=== PATIENT | male | born 1995 | race Hispanic/Latino ===

== ENCOUNTER 2018-06-13 10:38 | Emergency (ER) | payer OTHER ==
[~2018-06-13] VITALS: Ht 182.9 cm; Wt 94.5 kg
[~2018-06-13 10:38] MED LIST: AUGMENTIN875TAB PO; NAPROSYN500 MG PO; TOBRAMYCIN0.3 % OS
[2018-06-13] MEDS ORDERED: NAPROSYN500 MG PO (12:30)
[2018-06-13 12:47] VITALS: BP 137/50
== END 2018-06-13 12:47 | disposition home or self-care (01) | DRG 538 ==
LOC: ED 10:38
DX: S73.102A Unspecified sprain of left hip, initial encounter (principal); S43.401A Unspecified sprain of right shoulder joint, initial encounter; V43.54XA Car driver injured in collision with van in traffic accident, initial encounter